=== PATIENT | female | born 1985 | race Two or more races ===

== ENCOUNTER 2020-06-24 21:18 | Inpatient (IN) | payer OTHER ==
[~2020-06-24] VITALS: Ht 165.1 cm; Wt 84.4 kg
[~2020-06-24 21:18] MED LIST: DSS100 PO; IBUP-2071 PO; PREN1TAB80 PO; TYL3 PO
[2020-06-24] MEDS ORDERED: METOCLOPRAMIDE HCL 5 MG/ML 2 ML VIAL IVP PRN (22:30)
[2020-06-24] MEDS ORDERED: CITRIC ACID/SODIUM CITRATE 30 ML SOLUTION UDCUP PO PRN (22:30)
[2020-06-24] MEDS ORDERED: OXYTOCIN 30 UNITS/LACT RINGERS 500 ML IV ONE (22:30)
[2020-06-24] MEDS ORDERED: OXYGEN THERAPY IH SCH (22:30)
[2020-06-24] MEDS ORDERED: OXYTOCIN 30 UNITS/LACT RINGERS 500 ML IV PRN (22:30)
[2020-06-24] MEDS ORDERED: RINGERS SOLUTION,LACTATED 1,000 ML IV PRN (22:30)
[2020-06-24] MEDS ORDERED: AMPICILLIN SODIUM 2 GM/NS 100 ML IV ONE (22:30)
[2020-06-24] MEDS: RINGERS SOLUTION,LACTATED 1,000 ML IV SCH (23:24)
[2020-06-24 23:29] LABS: BASOPHILS % (AUTO) 0.2 % (0.0-2.0); EOSINOPHILS % (AUTO) 1.1 % (1.0-6.0); HEMATOCRIT 32.8 % (36-46); HEMOGLOBIN 11.1 g/dL (12.0-16.0); LYMPHOCYTES % (AUTO) 21.2 % (22.0-44.0); MEAN CORPUSCULAR HEMOGLOBIN 29.3 pg (26.0-34.0); MEAN CORPUSCULAR HGB CONC 33.9 G/dL (31.0-37.0); MEAN CORPUSCULAR VOLUME 87 fL (80-100); MONOCYTES # (AUTO) 0.7 K/uL (0.1-1.0); MONOCYTES % (AUTO) 7.6 % (2.0-9.0); NEUTROPHILS # (AUTO) 6.7 K/uL (1.8-7.7); NEUTROPHILS % (AUTO) 69.9 % (40.0-70.0); PLATELET COUNT (AUTO)-OB 183 K/uL (150-450); RED BLOOD CELL COUNT(AUTO) 3.79 MIL/uL (4.00-5.20); RED CELL DISTRIBUTION WIDTH 13.1 % (11.5-14.5)
[2020-06-24 23:53] VITALS: BP 116/75
[2020-06-25] MEDS ORDERED: OXYTOCIN 30 UNITS/LACT RINGERS 500 ML IV PRN (00:05)
[2020-06-25 00:13] LABS: COVID AG,FIA SOURCE NASOPHARYNGEAL
[2020-06-25] MEDS ORDERED: INFLUENZA VIRUS VACCINE QVS 2020-21 (6MO+)/PF 60 MCG/0.5 ML SYRINGE IM ONE (00:30)
[2020-06-25] MEDS: AMPICILLIN SODIUM 1 GM/NS 50 ML IV SCH ×2 (03:22→07:56)
[2020-06-25] MEDS: RINGERS SOLUTION,LACTATED 1,000 ML IV SCH ×2 (03:43→07:57)
[2020-06-25] MEDS ORDERED: FentaNYL CITRATE PF 100 MCG/2 ML VIAL IVP PRN (08:00)
[2020-06-25] MEDS ORDERED: ROPIVACAINE HCL/PF 0.2% 100 ML ED ONE (08:08)
[2020-06-25] MEDS ORDERED: DiphenhydrAMINE HCL 50 MG/ML VIAL IVP PRN (08:30)
[2020-06-25] MEDS ORDERED: ROPIVACAINE HCL/PF 0.2% 100 ML ED PRN (08:30)
[2020-06-25] MEDS ORDERED: NALBUPHINE HCL 10 MG/ML VIAL IVP PRN (08:30)
[2020-06-25] MEDS ORDERED: ONDANSETRON HCL 4 MG/2 ML VIAL IVP PRN (08:30)
[2020-06-25] MEDS ORDERED: ACETAMINOPHEN/CODEINE 300-30 MG TABLET PO PRN ×2 (10:00)
[2020-06-25] MEDS ORDERED: GLYCERIN/WITCH HAZEL LEAF 40 PADS JAR TP PRN (10:00)
[2020-06-25] MEDS ORDERED: LANOLIN 7 GM OINTMENT TP PRN (10:00)
[2020-06-25] MEDS ORDERED: BENZOCAINE 20%/MENTHOL 56 GM SPRAY CANISTER TP PRN (10:00)
[2020-06-25] MEDS: IBUPROFEN 800 MG TABLET PO SCH ×2 (15:00→20:26)
[2020-06-25] MEDS: MAGNESIUM HYDROXIDE SUSPENSION 30 ML UDCUP PO SCH (20:26)
[2020-06-26] MEDS: IBUPROFEN 800 MG TABLET PO SCH ×2 (02:43→09:12)
[2020-06-26] MEDS ORDERED: IBUP-2071 PO (08:56)
[2020-06-26] MEDS ORDERED: DOCU-275 PO (08:57)
[2020-06-26] MEDS ORDERED: FERR-89 PO (08:58)
[2020-06-26] MEDS: MAGNESIUM HYDROXIDE SUSPENSION 30 ML UDCUP PO SCH (09:11)
[2020-06-26] MEDS ORDERED: SENNA/DOCUSATE SODIUM 8.6-50 MG TABLET PO ONE (11:30)
== END 2020-06-26 12:35 | disposition home or self-care (01) | DRG 807 ==
LOC: 4S 21:18 → OBSVTOIN 21:18
PROVIDERS: ADMIT Obstetrics & Gynecology Obstetrics; ATTEND Obstetrics & Gynecology Obstetrics
PROC: 10E0XZZ Delivery of Products of Conception, External Approach (ICD-10-PCS; principal; 2020-06-25)
PROC: 0KQM0ZZ Repair Perineum Muscle, Open Approach (ICD-10-PCS; 2020-06-25)
PROC: 3E0R3BZ Introduction of Anesthetic Agent into Spinal Canal, Percutaneous Approach (ICD-10-PCS; 2020-06-25)
PROC: 00HU33Z Insertion of Infusion Device into Spinal Canal, Percutaneous Approach (ICD-10-PCS; 2020-06-25)
DX: O70.1 Second degree perineal laceration during delivery (principal); Z37.0 Single live birth; Z3A.39 39 weeks gestation of pregnancy; Z20.822 Contact with and (suspected) exposure to COVID-19
CPT/HCPCS: 86850; 86900; 86901; 87426; 90686; J0290; J2590; J2795; J7120